=== PATIENT | female | born 1985 | race Caucasian/White ===

== ENCOUNTER 2018-04-22 15:30 | Emergency (ER) | payer BC, MEDICAID, OTHER ==
[2018-04-22 15:43] VITALS: BP 111/67; PULSE 76; RESP 18; TEMP 98; O2SAT 98
--- NOTE | 2018-04-22 16:52 | ED PDOC ---
HPI: Back Time Seen by Provider: 04/22/18 16:19 Chief Complaint (Nursing): Back Pain Chief Complaint (Provider): Back Pain History Per: Patient History/Exam Limitations: no limitations Onset/Duration Of Symptoms: Days (x2) Current Symptoms Are (Timing): Still Present Pain Scale Rating Of: 8 Additional Complaint(s): 32 year old female presents to the ED for evaluation of 8/10 lower back pain since last night. Patient states she was sitting in bed doing school work when the pain began, greater on the left side than the right, and radiating into her left lower extremity. She states her family became so worried that they called EMS to the house, but she refused to be evaluated at that time. When she woke up this morning with the same pain, she reports taking Aleve last at 7:00 with no relief. She notes the pain gradually worsened today while at work, especially with movement and changing positions. Otherwise, (-) history of back injury, (-) trauma, (-) falls, (-) history of back surgery, (-) fever, (-) chills, (-) abdominal pain, (-) nausea, (-) vomiting, (-) diarrhea, (-) chest pain, (-) shortness of breath, (-) saddle anesthesia, (-) incontinence. LNMP: currently PMD: Nolvia Reed Past Medical History Reviewed: Historical Data, Nursing Documentation, Vital Signs Vital Signs: Last Vital Signs Temp 98.0 F 04/22/18 15:41 Pulse 76 04/22/18 15:41 Resp 18 04/22/18 15:41 BP 111/67 04/22/18 15:41 Pulse Ox 98 04/22/18 15:41 - Medical History PMH: Asthma, Bronchitis, HTN, Hypothyroidism, Malignancy (PITUITARY TUMOR) - Surgical History Surgical History: Tonsillectomy Other surgeries: pituitary tumor removal - Family History Family History: States: Unknown Family Hx - Social History Current smoker - smoking cessation education provided: No Alcohol: Social Drugs: Denies - Home Medications Home Medications: Ambulatory Orders Medication Instructions Recorded Albuterol Sulfate [Ventolin Hfa] 1 puff IH Q6 #1 inh 09/23/14 Montelukast Sodium [Singulair] 10 mg PO HS #30 tablet 03/29/18 Cyclobenzaprine [Cyclobenzaprine 10 mg PO TID PRN #12 tab 04/22/18 HCl] Naproxen 500 mg PO BID PRN #20 tab 04/22/18 - Allergies Allergies/Adverse Reactions: Allergies Allergy/AdvReac Type Severity Reaction Status Date / Time IV DYE Allergy Severe ANAPHYLAXIS Uncoded 04/22/18 15:41 Review of Systems ROS Statement: Except As Marked, All Systems Reviewed And Found Negative Constitutional: Negative for: Fever, Chills Cardiovascular: Negative for: Chest Pain Respiratory: Negative for: Shortness of Breath Gastrointestinal: Negative for: Nausea, Vomiting, Abdominal Pain, Diarrhea Genitourinary Female: Negative for: Incontinence Musculoskeletal: Positive for: Back Pain (lower back, left greater than right, radiating into lower left extremity. worse with movement or changing positions.) Neurological: Negative for: Other (saddle anesthesia) Physical Exam - Reviewed Nursing Documentation Reviewed: Yes Vital Signs Reviewed: Yes - Physical Exam Comments: GENERAL APPEARANCE: Patient is awake, alert, oriented x 3, in no acute distress. Uncomfortable appearing, morbidly obese. SKIN: Warm, dry; (-) cyanosis. EYES: (-) conjunctival pallor. ENMT: Mucous membranes moist. NECK: Supple, FROM (-) tenderness, (-) stiffness, (-) lymphadenopathy. CHEST AND RESPIRATORY: (-) rales, (-) rhonchi, (-) wheezes; breath sounds equal bilaterally. Speaking in full sentences, respirations even and nonlabored. HEART AND CARDIOVASCULAR: (-) irregularity; (-) murmur, (-) gallop. ABDOMEN AND GI: Soft; (-) tenderness (-)guarding (-) CVA tenderness bilaterally. BACK: (+) diffuse paralumbar tenderness, left greater than right. (+) bilateral sciatic notch tenderness, (-) deformity (-) midline tenderness EXTREMITIES: (-) deformity. Distal pulses good bilaterally. NEURO AND PSYCH: Mental status as above. Intact sensation bilaterally; normal strength in extension of the knees, plantar and dorsiflexion of the toes. Gait steady, speech clear. (-) focal deficit (-) facial asymmetry - Laboratory Results Urine POC: Negative Urine dip results: Positive for: Leukocyte Esterase (small). Negative for: Blood, Nitrate, Ketones, Glucose, Bilirubin, Protein - ECG O2 Sat by Pulse Oximetry: 98 (RA) Pulse Ox Interpretation: Normal Medical Decision Making Medical Decision Making: Time: 16:42 Initial Impression: acute back pain, sciatica, radicular pain of LE Initial Plan: -- test --ED Urine dipstick --Toradol 30 mg IM --Tylenol 650 mg PO --Valium 5 mg PO (Not driving home) 174 Udip reviewed. (+) leukocytes. Urinalysis and urine culture ordered. Urine Preg: Negative. 1920 U/A unremarkable. 1944 On re-evaluation, patient reports improvement of symptoms. Ambulating around ED with steady gait. On exam, patient remains AAOx3, in no acute distress. On exam , neck is supple, lungs CTA, cardiac RRR, abdomen is soft and non-tender, neuro exam shows no focal findings. VSS, stable for discharge. Diagnostic results d/w the patient in great detail. Dx of acute back pain, sciatica with radicular pain of lower extremity d/w the patient. Based on history, exam and diagnostic results plan will be for discharge and outpatient follow up. Advised to follow up with primary care physician/ortho in 1-2 days without fail. Advised to take medication as prescribed. Return to the emergency room at any time for any new or worsening symptoms. Patient states she fully agrees with and understands discharge instructions. States that she agrees with the plan and disposition. Verbalized and repeated discharge instructions and plan. I have given the patient opportunity to ask any additional questions. Scribe Attestation: Documented by Abi Wilkins, acting as a scribe for Asha Abdullahi PA-C. Provider Scribe Attestation: All medical record entries made by the Scribe were at my direction and personally dictated by me. I have reviewed the chart and agree that the record accurately reflects my personal performance of the history, physical exam, medical decision making, and the department course for this patient. I have also personally directed, reviewed, and agree with the discharge instructions and disposition. Disposition - Clinical Impression Clinical Impression: Low back pain, Sciatica, Radicular pain of lower extremity - Patient ED Disposition Is Patient to be Admitted: No Counseled Patient/Family Regarding: Studies Performed, Diagnosis, Need For Followup, Rx Given - Disposition Referrals: Tad Young III, MD [Staff Provider] - Disposition: Routine/Home Disposition Time: 19:49 Condition: STABLE Additional Instructions: FOLLOW UP WITH PMD/ORTHO IN 1-2 DAYS FOR FURTHER EVALUATION. RETURN TO ED WITH ANY NEW OR WORSENING SYMPTOMS. TAKE MEDICATIONS PRESCRIBED FOR RELIEF OF SYMPTOMS. Prescriptions: Cyclobenzaprine [Cyclobenzaprine HCl] 10 mg PO TID PRN #12 tab PRN Reason: Muscle Spasm Naproxen 500 mg PO BID PRN #20 tab PRN Reason: Pain, Moderate (4-7) Instructions: Sciatica, Low Back Pain in Adults, Radiculopathy, Do I Need an X- ray (or Other Test) for Low Back Pain?, Sciatica Exercises Forms: [employer] ([place]) Print Language: POLISH - POA Present On Arrival: None Results - Lab Results Lab Results: 04/22/18 18:19 Urine Color Yellow Urine Clarity Slighty-cloudy Urine pH 6.0 Ur Specific Marvin 1.013 Urine Protein Negative Urine Glucose (UA) Neg Urine Ketones Negative Urine Blood Negative Urine Nitrate Negative Urine Bilirubin Negative Urine Urobilinogen 0.2-1.0 Ur Leukocyte Esterase Negative Urine RBC (Auto) 1 Urine Microscopic WBC 2 Ur Squamous Epith Cells 3 Amorphous Sediment Rare H Urine Bacteria Rare
[2018-04-22 19:15] LABS: SQUAMOUS EPITHIAL 3 /hpf (0-5); URINE AMORPHOUS SEDIMENT RARE /ul (<OCC); URINE BACTERIA RARE (<OCC); URINE BILIRUBIN NEGATIVE (NEGATIVE); URINE BLOOD NEGATIVE (NEGATIVE); URINE CLARITY SLIGHTY-CLOUDY (Clear); URINE COLOR YELLOW (YELLOW); URINE GLUCOSE (UA) NEG (Normal); URINE PROTEIN NEGATIVE (NEGATIVE); URINE UROBILINOGEN 0.2-1.0 mg/dL (0.2-1.0)
[2018-04-22 19:20] LABS: URINE LEUKOCYTE ESTERASE NEGATIVE Leu/uL (Negative)
== END 2018-04-22 20:20 | disposition home or self-care (01) ==
LOC: H.ER 15:30
DX: M54.40 Lumbago with sciatica, unspecified side (principal); M54.16 Radiculopathy, lumbar region
CPT/HCPCS: 81003; 81025; 87086; 96372; 99283; J1885